=== PATIENT | female | born 1940 | race Caucasian/White ===

== ENCOUNTER 2016-08-15 17:56 | Emergency (ER) | payer OTHER ==
[~2016-08-15] VITALS: Ht 157.5 cm; Wt 69.6 kg
[~2016-08-15 17:56] MED LIST: AMITRIPTYLINE H50 MG PO; AMLODIPINE BESY10 MG PO; ASPIR-LOW81 MG PO; ASPIR-TRIN325 M1 PO; ASPIRIN81 M2 PO; CALCITRIOL0.5 MCG PO; CARVEDILOL12.5 MG PO; COLACE100 MG PO; ESCITALOPRAM OX10 MG PO; FUROSEMIDE20 MG PO; HYDROCHLOROTHIA25 MG PO; Imdur PO; LABETALOL HCL200 MG PO; LEVOTHROID,S0.112 MG PO; LEVOTHROID100 MCG PO; LEVOTHYROXINE100 MCG PO; LEXAPRO10 MG PO; LISINOPRIL2.5 MG PO; LISINOPRIL20 MG PO; NIFEDICAL XL60 MG PO; Normodyne,Trandate PO; Proventil,Ventolin H IH; Tylenol Regular Stre PO; ZOCOR20 MG PO; Zocor PO
[2016-08-15 18:49] LABS: HEMATOCRIT 38.2 % (36.0-46.0); MCH 29.3 PG (29.0-34.0); MCHC 31.7 G/DL (30.0-36.0); MCV 92.5 FL (83-99); MEAN PLAT.VOLUME 9.4 uM^3 (9.5-12.4); PLATELET COUNT 188 K/uL (156-360); RBC DIS.WIDTH-CV 12.8 % (11.8-14.6); RBC DIS.WIDTH-SD 43.3 % (39-53); RED BLOOD COUNT 4.13 M/uL (3.80-5.20); WHITE BLOOD COUNT 10.1 K/uL (4.1-10.2)
[2016-08-15 19:02] LABS: INTER. NORMALIZED RATIO 1.1; PROTHROMBIN TIME 10.7 (9.2-11.2)
[2016-08-15 19:14] LABS: TROP-I INTERPRETATION NEGATIVE; TROPONIN-I < 0.01 ng/mL (0.0-0.30)
[2016-08-15 19:23] LABS: CHLORIDE 108 mEq/L (99-109); POTASSIUM 4.2 mEq/L (3.7-5.4); SODIUM 139 mEq/L (136-147)
[2016-08-15 19:26] LABS: GLUCOSE 93 mg/dL (70-99)
[2016-08-15 19:27] LABS: ANION GAP 10 MEQ/L (2-14); TOTAL BILIRUBIN 0.7 mg/dL (0.0-1.0)
[2016-08-15 19:29] LABS: ALKALINE PHOSPHATASE 64 IU/L (3-129); GFR ESTIMATE (CALCULATED) 33 mL/min/
[2016-08-15 19:30] LABS: UREA NITROGEN (BUN) 22 mg/dL (9-23)
[2016-08-15 19:31] LABS: DIRECT BILIRUBIN 0.3 mg/dL (0.0-0.3)
[2016-08-15 19:33] LABS: LIPASE 33 U/L (1.0-51.0)
[2016-08-15 20:55] VITALS: BP 134/77
== END 2016-08-15 20:58 | disposition home or self-care (01) ==
LOC: EME 17:56
PROVIDERS: Emergency Medicine
DX: K62.3 Rectal prolapse (principal); J45.909 Unspecified asthma, uncomplicated; E78.5 Hyperlipidemia, unspecified; I10 Essential (primary) hypertension; M81.0 Age-related osteoporosis without current pathological fracture; Z86.73 Personal history of transient ischemic attack (TIA), and cerebral infarction without residual deficits; E07.9 Disorder of thyroid, unspecified; I25.2 Old myocardial infarction; Z95.2 Presence of prosthetic heart valve; Z79.82 Long term (current) use of aspirin
CPT/HCPCS: 80048; 80076; 82140; 83690; 83880; 84484; 85027; 85610; 86850; 86900; 86901; 93005; 99281; 99284; J7030